=== PATIENT | male | born 1990 | race Caucasian/White ===

== ENCOUNTER 2022-01-02 14:53 | Outpatient (CLI) | payer MEDICAID ==
[2022-01-02 17:38] LABS: BASOPHILS % (AUTO) 0.7 %; EOSINOPHILS % (AUTO) 1.5 %; HCT - HEMATOCRIT 44.8 % (42.0-52.0); LYMPHOCYTES % (AUTO) 42.9 %; MEAN CORPUSCULAR HEMOGLOBIN 28.9 pg (27.0-31.0); MEAN CORPUSCULAR HGB CONC 33.5 g/dL (32.0-36.0); MEAN CORPUSCULAR VOLUME 86.3 fL (80.0-94.0); MEAN PLATELET VOLUME 9.5 fL (7.4-11.4); NEUTROPHILS % (AUTO) 45.6 %; PLT - PLATELET COUNT 507 10^3/uL (130-450); RED BLOOD COUNT 5.19 10^6/uL (4.70-6.10); RED CELL DISTRIBUTION WIDTH 13.2 % (12.0-15.0); WHITE BLOOD COUNT 8.8 x10^3/uL (4.8-10.8)
[2022-01-02 17:41] LABS: ABNORMAL LYMPHS % (MANUAL) 0 %
[2022-01-02 18:01] LABS: ALBUMIN 4.6 g/dL (3.2-5.5); ALBUMIN/GLOBULIN RATIO 1.4 (1.0-2.2); ALKALINE PHOSPHATASE 46 IU/L (42-121); ALT ALANINE AMINOTRANSFERASE 19 IU/L (10-60); AST ASPARTATE AMINOTRANSFERASE 17 IU/L (10-42); BILIRUBIN,TOTAL 0.7 mg/dL (0.2-1.0); BUN - BLOOD UREA NITROGEN 11 mg/dL (6-20); CALCIUM 9.6 mg/dL (8.5-10.3); CARBON DIOXIDE - CO2 30 mmol/L (21-32); CHLORIDE 102 mmol/L (101-111); CREATININE 0.8 mg/dL (0.6-1.2); GFR - MDRD 114 (>89); GLUCOSE 128 mg/dL (70-100); SODIUM 138 mmol/L (135-145)
[2022-01-02 18:40] LABS: CRP - C-REACTIVE PROTEIN < 1.0 mg/dL (0-1.0)
[2022-01-02 18:43] LABS: BAND NEUTROPHILS % (MANUAL) 1 %; EOSINOPHILS # (MANUAL) 0.1 10^3/uL (0-0.7); LYMPHOCYTES # (MANUAL) 4.1 10^3/uL (1.5-3.5); LYMPHOCYTES % (MANUAL) 47 %; MONOCYTES # (MANUAL) 0.6 10^3/uL (0.0-1.0)
[2022-01-02 18:44] LABS: PLATELET ESTIMATE, MANUAL INCREASED (>450,000) (NORMAL); PLATELET MORPHOLOGY NORMAL APPEARANCE (NORMAL); RBC MORPHOLOGY (MULTIPLE) NORMAL APPEARANCE (NORMAL)
[2022-01-02 18:45] LABS: DIFFERENTIAL COMMENT MANUAL DIFFERENTIAL; WBC MORPHOLOGY (MULTIPLE) NORMAL APPEARANCE (NORMAL)
== END 2022-01-02 14:54 | disposition home or self-care (01) ==
LOC: LAB.N 14:53
PROVIDERS: ATTEND Physician Assistant
DX: R19.7 Diarrhea, unspecified (principal)
CPT/HCPCS: 36415; 80053; 85025; 86140

== ENCOUNTER 2023-04-09 11:49 | Outpatient (CLI) | payer MEDICAID ==
[2023-04-09 20:10] LABS: CHLAMYDIA TRACHOMATIS DNA NEGATIVE (NEGATIVE); NEISSERIA GONORRHOEAE DNA NEGATIVE (NEGATIVE); TRICHOMONAS VAGINALIS DNA NEGATIVE (NEGATIVE)
== END 2023-04-09 11:50 | disposition home or self-care (01) ==
LOC: LAB.N 11:49
PROVIDERS: ATTEND Family Medicine
DX: Z20.2 Contact with and (suspected) exposure to infections with a predominantly sexual mode of transmission (principal); Z11.3 Encounter for screening for infections with a predominantly sexual mode of transmission
CPT/HCPCS: 36415; 86592; 86803; 87389; 87491; 87591; 87661

== ENCOUNTER 2023-06-20 11:08 | Outpatient (CLI) | payer MEDICAID ==
--- NOTE | 2023-06-20 14:06 | XRAY Report ---
PROCEDURE: Cervical Spine 2-3V INDICATIONS: CLAVICLE PAIN, NECK STRAIN TECHNIQUE: 3 view(s) of the cervical spine were acquired. COMPARISON: None. FINDINGS: Bones: No fractures or dislocations to the C7-T1 level. The lateral masses of C1 appear intact on t he odontoid view. No suspicious bony lesions. There is trace retrolisthesis of C6 on C7 with disc n arrowing at C6-7. Soft tissues: No prevertebral soft tissue swelling. IMPRESSION: Minimal degenerative change. Reviewed by: Betty Toscano MD on 06/20/2023 2:05 PM PST Approved by: Betty Toscano MD on 06/20/2023 2:05 PM PST Station ID: [id number]
--- NOTE | 2023-06-20 14:09 | XRAY Report ---
PROCEDURE: Clavicle LT INDICATIONS: CLAVICLE PAIN TECHNIQUE: 2 views of the clavicle were acquired. COMPARISON: None. FINDINGS: Bones: No visualized fracture. Acromioclavicular joint space is at the upper limits of normal. No carrasco spicious bony lesions. Soft tissues: No suspicious soft tissue calcifications or masses. IMPRESSION: Acromioclavicular joint space is at the upper limits of normal. Mild sprain cannot be definitively ex cluded. Reviewed by: Betty Toscano MD on 06/20/2023 2:08 PM PST Approved by: Betty Toscano MD on 06/20/2023 2:08 PM PST Station ID: [id number]
== END 2023-06-20 11:09 | disposition home or self-care (01) ==
LOC: DI 11:08
PROVIDERS: ATTEND Family Medicine
DX: S16.1XXA Strain of muscle, fascia and tendon at neck level, initial encounter (principal); M89.8X8 Other specified disorders of bone, other site; M47.812 Spondylosis without myelopathy or radiculopathy, cervical region